=== PATIENT | female | born 1980 | race Caucasian/White ===

== ENCOUNTER 2016-09-06 10:50 | Emergency (ER) | payer BC ==
[~2016-09-06 10:50] MED LIST: ANTIVERT-DPS25 MG PO; LEVAQUIN DPS500 MG PO; MELATONIN10 MG PO
--- NOTE | 2016-09-09 16:41 | ER ---
ADMIT: 09/06/2016 RM/LOC: ER [facility] MR#: [id number] [id number] [place], [place] [id number] DELL BOSSROLANDO [address] [address] Emergency Room Report SEX: F AGE: 35 : 1980 DATE: 09/06/2016 ADDENDUM: A 35-year-old female, speaks no Divehi, coming in with lower abdominal pain. She is not . CBC and chemistry negative. CT scan is negative. She has a history of stones and she thought may be that was it, but I do not see it. At this time, she has no vaginal discharge. No fever. She has had C-sections, so she could have a little scarring that can cause her problems. I am going to send her home with Abdi 5/325, #20, 1-2 p.o. q.6 p.r.n. pain. Home, rest. Off work a couple of days. Return Tuesday. CONDITION ON DISCHARGE: Fair. Sacha aG MD/ kaylyn JOB #: [id number] CC: Sacha Ga MD, Attending Physician Last Blanco MD, Family Physician
== END 2016-09-06 14:07 | disposition home or self-care (01) ==
LOC: ER 10:50
DX: R10.84 Generalized abdominal pain (principal); F17.210 Nicotine dependence, cigarettes, uncomplicated; Z87.442 Personal history of urinary calculi